=== PATIENT | male | born 1940 | race Two or more races ===

== ENCOUNTER 2024-06-14 11:25 | Emergency (ER) | payer OTHER ==
[~2024-06-14] VITALS: Ht 177.8 cm; Wt 80.0 kg
--- NOTE | 2024-06-14 11:47 | ED.PDOC ---
Altered Mental Status HPI Comments 84 year old male BRADEN presents to the ED with chief complaint of ALOC. EMS reports patient is coming from [facility] with reported increased confusion and ALOC according to staff. EMS relays patient is in rehabilitation for recent pneumonia, however, the ALOC started this morning, worsening over duc e. Patient unable to answer where he is, why he is here, and how old he is, but patient denies any complaints at this time. EMS denies any further history at this time. Time Seen by MD: 11:30 Reviewed Notes: Nurses Notes, Strip Mill Operator Notes, Medications, Allergies Allergies: Coded Allergies: NO KNOWN ALLERGIES (Unverified , 06/14/24) Information Source: Patient, Emergency Med Personnel Mode of Arrival: EMS Severity: Moderate Timing: Hours Duration: Since onset Prehospital treatment: None Quality: Change in Behavior, Confusion, Memory Loss Recent: None History of: None Past Medical History PAST MEDICAL HISTORY: CHF, High Lipids, HTN Past Medical History (Other): Pneumonia Surgical History: Pacemaker Family History Family History: Reviewed,noncontributory to illness Social History Smoker: Non-Smoker Alcohol: Denies ETOH Use Drugs: Denies Drug Use Lives In: Skilled Nursing Unable to Obtain due to: Altered Mental Status All Other Systems: Reviewed and Negative Physical Exam General Appearance: Moderate Distress, Normal HEENT: Normal ENT Inspection, PERRL/EOMI Neck: Full Range of Motion, Non-Tender, Normal, Normal Inspection Respiratory: Chest Non-Tender, Lungs Clear, No Accessory Muscle Use, No Respiratory Distress, Normal Breath Sounds Cardiovascular: No Edema, No JVD, No Murmur, No Gallop, Normal Peripheral Pulses, Regular Rate/Rhythm Breast Exam: Deferred Gastrointestinal: No Organomegaly, Non Tender, No Pulsatile Mass, Normal Bowel Sounds, Soft Genitalia: Deferred Pelvic: Deferred Rectal: Deferred Extremities: No calf tenderness, Normal capillary refill, Normal inspection, Normal range of motion, Non-tender, No pedal edema Musculoskeletal : Apperance: Normal Neurologic: bearing inspector II-XII nml as Tested, Disoriented, No Motor Deficits, Normal Affect, Normal Mood, No Sensory Deficits Cerebellar Function: NOT DONE Reflexes: NOT DONE Skin: Dry, Normal Color, Warm Peripheral Pulses: 3+ Radial (R), 3+ Radial (L) Lymphatic: No Adenopathy Was a procedure done? Was a procedure done?: No Differential Diagnosis (ALOC) Differential Diagnosis: Dehydration, Hypoxemia X-Ray, Labs, Meds, VS Vital Signs Date Time Temp Pulse Resp B/P (MAP) Pulse Ox O2 Delivery O2 Flow Rate FiO2 06/14/24 11:50 98.2 17 20 126/59 (81) 97 06/14/24 11:30 73 Lab Test 06/14/24 17:40 06/14/24 11:39 Range/Units Ammonia Pending White Blood Count 7.9 4.4-10.8 10^3/uL Red Blood Count 4.06 L 4.5-5.90 10^6/uL Hemoglobin 13.4 L 13.5-17.5 g/dL Hematocrit 37.8 L 41.0-53.0 % Mean Corpuscular Volume 93.1 80.0-100.0 fL Mean Corpuscular Hemoglobin 33.0 H 28.0-32.0 pg Mean Corpuscular Hemoglobin Concent 35.4 32.0-36.0 g/dL Red Cell Distribution Width 15.4 H 11.8-14.3 % Platelet Count 153 140-450 10^3/uL Mean Platelet Volume 8.7 6.9-10.8 fL Neutrophils (%) (Auto) 70.4 37.0-80.0 % Lymphocytes (%) (Auto) 19.0 10.0-50.0 % Monocytes (%) (Auto) 8.2 0.0-12.0 % Eosinophils (%) (Auto) 2.1 0.0-7.0 % Basophils (%) (Auto) 0.3 0.0-2.0 % Neutrophils # (Auto) 5.5 1.6-8.6 10 ^3/uL Lymphocytes # (Auto) 1.5 0.4-5.4 10 ^3/uL Monocytes # (Auto) 0.6 0-1.3 10 ^3/uL Eosinophils # (Auto) 0.2 0-0.8 10 ^3/uL Basophils # (Auto) 0 0-0.2 10 ^3/uL Nucleated Red Blood Cells 0.0 % Sodium Level 137 136-145 mmol/L Potassium Level 2.8 L 3.5-5.1 mmol/L Chloride Level 94 L 98-107 mmol/L Carbon Dioxide Level 34 H 20-31 mmol/L Anion Gap 9 5-15 Blood Urea Nitrogen 32 H 9-23 mg/dL Creatinine 2.49 H 0.700-1.30 mg/dL Glomerular Filtration Rate Calc 25 >90 mL/min BUN/Creatinine Ratio 12.9 10.0-20.0 Serum Glucose 248 H 74-106 mg/dL Calcium Level 9.1 8.7-10.4 mg/dL Troponin I High Sensitivity 25 </=54 ng/L [place] [id number] Ph: [phone] DIAGNOSTIC IMAGING Diagnostic Imaging Report : [id number] Signed PATIENT: IVETH PURCELL ACCT: [id number] UNIT: [id number] : 1940 LOC: ER ROOM / BED: / AGE / SEX: 84 / M ADM STATUS: REG ER SERVICE 115 ORDERING PHYSICIAN: DALE CHAVEZ MD PROCEDURE(s): CXRP - CHEST PORTABLE REASON: sob ORDER NUMBER(s): [id number], ACCESSION NUMBER(s): [id number] CHEST RADIOGRAPH Indication: sob Technique: Single frontal view of the chest was obtained Comparison: None FINDINGS: Lines and Tubes: Dual lead pacer with right atrial and ventricular leads. Generator overlies the left chest. Lungs: Bilateral interstitial prominence. Pleura: No effusion. No pneumothorax. Cardiomediastinal contours: Unremarkable Bones: No acute osseous abnormality. IMPRESSION: 1. Bilateral interstitial prominence which may reflect congestion or chronic lung disease. ATED BY: MOIRA CHIANG MD DICTATED DATE/TIME: 06/14/24 1220 SIGNED BY: MOIRA CHIANG MD SIGNED DATE/TIME: 06/14/24 1220 CC Patient takes time answering questions. He is alert. Unable to get a good history. EKG does show paced rhythm. Chest x-ray reviewed does not show any acute changes. Vitals stable. Potassium is low. Blood sugar elevated pain Cardiac marker within normal limits. Reviewed his previous visit. Explained to the patient. Continue cardiac monitoring. Evaluation he is appropriate. Family does not want him to be transferred. Wants the patient back in his skilled facility. Paced rhythm. Denies chest pain. Denies shortness of breath. No leg swelling. No sign of any trauma. Moving all extremities. Explained to the patient. Will be signed out to night physician. Time of 1ST Reevaluation: 12:30 Reevaluation 1ST: Improved Time of 2ND Reevaluation: 17:35 Reevaluation 2ND: Improved Patient Education/Counseling: Diagnosis, Treatment, Prognosis Family Education/Counseling: No Family Present Additional Information The following tests were ordered, and results were reviewed by me: CBC, BMP, Troponin, CXR Additional Information was gathered from interviewing the following independent historians: EMT I reviewed and agreed with the following test results read by other providers: CXR I discussed treatment and results with medical personnel. Departure 1 Departure Time of Disposition: 14:40 Impression: Primary Impression: Hypokalemia Additional Impression: ATN (acute tubular necrosis) Disposition: ADMITTED INPATIENT Admit to: Med Surg Condition: Guarded Critical Care Note Critical Care Time?: Yes (45 min-critical care time only) Stability Stability form required: No Heart Score Heart Score: Heart Score Response (Comments) Value History Moderate Suspicious 1 EKG Normal 0 Age >65 2 Risk Factors >3 or Hx ASHD 2 Troponin Normal limit 0 Total 5 I personally scribed for DALE CHAVEZ MD ([email or web address]) on 06/14/24 at 11:47. Electronically submitted by Zay Vu ([email or web address]). I personally scribed for DALE CHAVEZ MD ([email or web address]) on 06/14/24 at 13:29. Electronically submitted by Cassia Leon ([email or web address]). I personally scribed for DALE CHAVEZ MD ([email or web address]) on 06/14/24 at 13:30. Electronically submitted by Cassia Leon ([email or web address]). I personally scribed for DALE CHAVEZ MD ([email or web address]) on 06/14/24 at 14:01. Electronically submitted by Cassia Leon ([email or web address]). I personally scribed for DALE CHAVEZ MD ([email or web address]) on 06/14/24 at 16:35. Electronically submitted by Cassia Leon ([email or web address]). I personally scribed for DALE CHAVEZ MD ([email or web address]) on 06/14/24 at 17:06. Electronically submitted by Cassia Leon ([email or web address]). DALE CHAVEZ MD Jun 14, 2024 11:47
[2024-06-14 12:01] LABS: Basophils # (auto) 0 10 ^3/uL (0-0.2); Basophils % (auto) 0.3 % (0.0-2.0); Eosinophils # (auto) 0.2 10 ^3/uL (0-0.8); Eosinophils % (auto) 2.1 % (0.0-7.0); Hematocrit 37.8 % (41.0-53.0); Hemoglobin 13.4 g/dL (13.5-17.5); Lymphocytes # (auto) 1.5 10 ^3/uL (0.4-5.4); Mean Corpuscular Hgb Conc. 35.4 g/dL (32.0-36.0); Mean Corpuscular Volume 93.1 fL (80.0-100.0); Monocytes # (auto) 0.6 10 ^3/uL (0-1.3); Monocytes % (auto) 8.2 % (0.0-12.0); Neutrophils # (auto) 5.5 10 ^3/uL (1.6-8.6); Neutrophils % (auto) 70.4 % (37.0-80.0); Platelet Count (auto) 153 10^3/uL (140-450); Red Blood Cells 4.06 10^6/uL (4.5-5.90); Red Cell Distribution Width 15.4 % (11.8-14.3); White Blood Cell 7.9 10^3/uL (4.4-10.8)
[2024-06-14 12:13] LABS: Sodium 137 mmol/L (136-145)
[2024-06-14 12:14] LABS: Anion Gap 9 (5-15); Calcium 9.1 mg/dL (8.7-10.4)
[2024-06-14 12:19] LABS: BUN/Creatinine Ratio 12.9 (10.0-20.0)
[2024-06-14 12:21] LABS: Blood Urea Nitrogen 32 mg/dL (9-23); Carbon Dioxide 34 mmol/L (20-31); Chloride 94 mmol/L (98-107); Glucose 248 mg/dL (74-106); Potassium 2.8 mmol/L (3.5-5.1)
--- NOTE | 2024-06-14 12:23 | DVH ---
CHEST RADIOGRAPH Indication: sob Technique: Single frontal view of the chest was obtained Comparison: None FINDINGS: Lines and Tubes: Dual lead pacer with right atrial and ventricular leads. Generator overlies the left chest. Lungs: Bilateral interstitial prominence. Pleura: No effusion. No pneumothorax. Cardiomediastinal contours: Unremarkable Bones: No acute osseous abnormality. IMPRESSION: 1. Bilateral interstitial prominence which may reflect congestion or chronic lung disease.
[2024-06-14] MEDS: POTASSIUM EFFERVESENT TAB 25 MEQ PO ONE (18:36)
--- NOTE | 2024-06-14 19:13 | ECG ---
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
--- NOTE | 2024-06-14 19:27 | DVH ---
EXAM: CT HEAD WITHOUT CONTRAST INDICATION: ALOC TECHNIQUE: CT of the head without intravenous contrast. Radiation Dose Information: CT Dose: CTDI volume is 62.82 mGy. Dose-length product is 1237.85 mGy*cm The dose indicators for CT are the volume Computed Tomography (CT) Dose Index (CTDIvol) and the Dose Length Product (DLP), and are measured in units of mGy and mGy-cm, respectively. These indicators are not patient dose, but values generated from the CT scanner acquisition factors. The report includes radiation exposure data for exposures received during this examination. COMPARISON: None FINDINGS: There is no evidence of acute intracranial hemorrhage, extra-axial collection, mass effect, midline s hift, herniation or hydrocephalus. The ventricles, sulci and cisterns are age appropriate. The reyes-white differentiation is intact. Patchy periventricular and subcortical white matter hypoattenuation is nonspecific but may be related to small vessel ischemic disease. The visualized paranasal sinuses and mastoid air cells are clear. The surrounding soft tissues and osseous structures are unremarkable. IMPRESSION: 1. No acute intracranial hemorrhage. 2. No CT findings of territorial ischemia.
[2024-06-14] MEDS: SODIUM CHLORIDE 0.9% 1,000 ML IV ONE (20:49)
[2024-06-14 22:54] LABS: Sodium 137 mmol/L (136-145)
[2024-06-14 22:55] LABS: Anion Gap 8 (5-15); Calcium 9.1 mg/dL (8.7-10.4)
[2024-06-14 23:00] LABS: BUN/Creatinine Ratio 12.5 (10.0-20.0)
[2024-06-14 23:24] LABS: Blood Urea Nitrogen 30 mg/dL (9-23); Carbon Dioxide 33 mmol/L (20-31); Chloride 96 mmol/L (98-107); Glucose 162 mg/dL (74-106); Potassium 3.1 mmol/L (3.5-5.1)
[2024-06-15] MEDS: LACTULOSE 20Gm/30ML SOLN PO ONE (00:35)
[2024-06-15 09:30] VITALS: BP 131/60; TEMP 97.9
[2024-06-15 10:04] VITALS: PULSE 86; RESP 16; O2SAT 99
== END 2024-06-15 10:08 | disposition short-term general hospital (02) ==
LOC: ER 11:25 → EDBD 11:25 → ER 06-15 10:08
DX: E87.6 Hypokalemia (principal); N17.0 Acute kidney failure with tubular necrosis; I11.0 Hypertensive heart disease with heart failure; I50.9 Heart failure, unspecified; Z95.0 Presence of cardiac pacemaker
CPT/HCPCS: 36415; 70450; 71045; 80048; 82140; 84484; 85025; 93005; 96360; 99285; J7030